=== PATIENT | female | born 1990 | race African-American/Black ===

== ENCOUNTER 2018-10-31 19:31 | Emergency (ER) | payer MEDICAID ==
[~2018-10-31] VITALS: Ht 170.2 cm; Wt 130.0 kg
[~2018-10-31 19:31] MED LIST: IBUP-516 PO
[2018-10-31 21:19] LABS: CLARITY URINE CLOUDY (CLEAR); COLOR URINE ORANGE (YELLOW); KETONES URINE NEGATIVE (NEGATIVE); LEUKOCYTE ESTERASE URINE 1+ (NEGATIVE); NITRITE URINE NEGATIVE (NEGATIVE); OCCULT BLOOD URINE 3+ (NEGATIVE); PROTEIN URINE 1+ (NEGATIVE); SPECIFIC GRAVITY URINE 1.012 (1.005-1.030)
[2018-10-31] MEDS ORDERED: SODIUM CHLORIDE 0.9% 1,000 ML IV ONE (23:11)
[2018-10-31] MEDS ORDERED: ONDANSETRON HCL 4MG/2ML INJ IV ONE (23:15)
[2018-10-31 23:46] LABS: EOSINOPHILS % 2.1 % (0.0-5.0); HEMATOCRIT. 38.1 % (36.0-48.0); HEMOGLOBIN. 12.7 g/dL (12.0-16.0); LYMPHOCYTES % 40.4 % (20.0-50.0); MEAN CORPUSCULAR HEMOGLOBIN 27.6 pg (28.0-32.0); MEAN PLATELET VOLUME 9.2 fl (7.4-10.4); MONOCYTES % 6.2 % (2.0-8.0); NEUTROPHILS % 50.3 % (40.0-76.0); PLATELET 222 x1000/uL (130-400); RED BLOOD CELL COUNT 4.59 mill/uL (4.2-5.4); RED CELL DISTRIBUTION WIDTH 14.2 % (11.6-14.6)
[2018-10-31 23:52] LABS: CHLORIDE 107 mEq/L (98-107)
[2018-11-01 00:04] LABS: B-HCG QUANTITATIVE 469 mIU/mL (<3)
[2018-11-01 02:30] VITALS: BP 109/61
== END 2018-11-01 02:42 | disposition home or self-care (01) ==
LOC: ER 19:31 → EDUNIT# 19:31 → ER 11-01 02:42
DX: O23.31 Infections of other parts of urinary tract in pregnancy, first trimester (principal); O20.0 Threatened abortion; Z3A.01 Less than 8 weeks gestation of pregnancy; Z98.890 Other specified postprocedural states
CPT/HCPCS: 36415; 76801; 80053; 81003; 81025; 84702; 85025; 86850; 86900; 86901; 96374; 99284; J2405; J7030

== ENCOUNTER 2019-06-12 23:51 | Emergency (ER) | payer MEDICAID ==
[~2019-06-12] VITALS: Ht 170.2 cm; Wt 118.0 kg
[2019-06-13 02:37] LABS: BASOPHILS % 0.3 % (0.0-2.0); EOSINOPHILS % 2.7 % (0.0-5.0); HEMATOCRIT. 34.7 % (36.0-48.0); HEMOGLOBIN. 11.7 g/dL (12.0-16.0); LYMPHOCYTES % 47.7 % (20.0-50.0); MEAN CORPUSCULAR HEMOGLOBIN 28.4 pg (28.0-32.0); MEAN CORPUSCULAR VOLUME 83.9 fL (81.0-99.0); MEAN PLATELET VOLUME 9.3 fl (7.4-10.4); MONOCYTES % 5.4 % (2.0-8.0); NEUTROPHILS % 43.9 % (40.0-76.0); PLATELET 234 x1000/uL (130-400); RED BLOOD CELL COUNT 4.14 mill/uL (4.2-5.4); RED CELL DISTRIBUTION WIDTH 13.7 % (11.6-14.6)
[2019-06-13 02:46] LABS: CHLORIDE 110 mEq/L (98-107)
[2019-06-13 06:20] VITALS: BP 137/68
== END 2019-06-13 06:21 | disposition home or self-care (01) ==
LOC: ER 23:51
DX: R07.89 Other chest pain (principal); R06.02 Shortness of breath
CPT/HCPCS: 36415; 71045; 81025; 84484; 85379; 93005; 99284

== ENCOUNTER 2020-03-06 20:25 | Emergency (ER) | payer MEDICAID ==
[~2020-03-06] VITALS: Ht 170.2 cm; Wt 134.4 kg
[2020-03-06] MEDS ORDERED: LIDOCAINE 1%/EPI 1:100,000 10 ML VIAL IJ ONE (22:30)
[2020-03-06] MEDS ORDERED: KETOROLAC 30MG/ML VIAL IM ONE (22:30)
[2020-03-06] MEDS ORDERED: LIDOCAINE HCL/EPINEPHRINE 1%-EPI 1:100,000 20 ML VIAL INFIL ONE (22:31)
[2020-03-06] MEDS ORDERED: CEFTRIAXONE SODIUM 1 G/VIAL IM ONE (22:45)
[2020-03-07 01:04] VITALS: BP 120/68
== END 2020-03-07 01:06 | disposition home or self-care (01) ==
LOC: ER 20:25
DX: L02.31 Cutaneous abscess of buttock (principal)
CPT/HCPCS: 10061; 96372; 99284; J0696; J1885; J3490

== ENCOUNTER 2020-03-09 07:47 | Emergency (ER) | payer MEDICAID ==
[~2020-03-09] VITALS: Ht 170.2 cm; Wt 134.0 kg
[2020-03-09 08:01] VITALS: BP 158/87
== END 2020-03-09 08:30 | disposition home or self-care (01) ==
LOC: ER 07:47
DX: L02.31 Cutaneous abscess of buttock (principal); Z48.00 Encounter for change or removal of nonsurgical wound dressing; Z98.890 Other specified postprocedural states
CPT/HCPCS: 99281